=== PATIENT | female | born 1965 | race African-American/Black ===

== ENCOUNTER 2019-10-28 10:25 | Emergency (ER) | payer MEDICAID ==
[~2019-10-28] VITALS: Ht 162.6 cm; Wt 81.6 kg
[~2019-10-28 10:25] MED LIST: ALBU2.5V8 INH; AZIT250T6 PO; METH4TAB2 PO
[2019-10-28 10:50] VITALS: BP 122/71
[2019-10-28] MEDS ORDERED: IPRATRPIUM/ALBUTEROL 0.5/2.5MG 3 ML NEBU. NEB STA (10:52)
[2019-10-28] MEDS ORDERED: DEXAMETHASONE 4 MG TABLET PO STA (10:52)
--- NOTE | 2019-10-28 10:54 | PHYS DOC ---
Past Medical History Past Medical History: Asthma, GERD Additional Past Medical Histor: BACK Past Surgical History: Cholecystectomy Alcohol Use: None Drug Use: None Adult General Chief Complaint Chief Complaint: ASTHMA HPI HPI Patient is a 53 year old female who presents with cough and wheezing this been ongoing for week. She states that she's been taken her inhaler at home but has not improved the situation. She reports her pain as 0 out of 10 in severity and sharp. Denies any fevers. Review of Systems Review of Systems Constitutional: Denies fever or chills [] Eyes: Denies change in visual acuity, redness, or eye pain [] HENT: Denies nasal congestion or sore throat [] Respiratory: Reports cough and shortness of breath [] Cardiovascular: No additional information not addressed in HPI [] GI: Denies abdominal pain, nausea, vomiting, bloody stools or diarrhea [] : Denies dysuria or hematuria [] Musculoskeletal: Denies back pain or joint pain [] Integument: Denies rash or skin lesions [] Neurologic: Denies headache, focal weakness or sensory changes [] Endocrine: Denies polyuria or polydipsia [] Complete systems were reviewed and found to be within normal limits, except as documented in this note. Current Medications Current Medications Current Medications Medications (Trade) Dose Ordered Sig/Beth Start Time Stop Time Status Last Admin Dose Admin Albuterol Sulfate (Ventolin Neb Soln) 10 mg 1X STAT 10/28/19 11:42 10/28/19 11:43 DC 10/28/19 12:10 10 MG Albuterol/ Ipratropium (Duoneb) 3 ml 1X STAT 10/28/19 10:52 10/28/19 10:54 DC 10/28/19 11:08 3 ML Dexamethasone (Decadron) 10 mg 1X STAT 10/28/19 10:52 10/28/19 10:54 DC 10/28/19 10:59 10 MG Allergies Allergies Allergies Coded Allergies Type Severity Reaction Last Updated Verified morphine Allergy Severe HIVES, 07/13/19 Yes Physical Exam Physical Exam Constitutional: Well developed, well nourished, no acute distress, non-toxic appearance. [] HENT: Normocephalic, atraumatic, bilateral external ears normal, oropharynx moist, no oral exudates, nose normal. [] Eyes: PERRLA, EOMI, conjunctiva normal, no discharge. [] Neck: Normal range of motion, no tenderness, supple, no stridor. [] Cardiovascular:Heart rate regular rhythm, no murmur [] Lungs & Thorax: Bilateral breath sounds have scattered wheezing bilaterally. Skin: Warm, dry, no erythema, no rash. [] Neurologic: Alert and oriented X 3, normal motor function, normal sensory function, no focal deficits noted. [] Psychologic: Affect normal, judgement normal, mood normal. [] Current Patient Data Vital Signs Vital Signs Date Time Temp Pulse Resp B/P (MAP) Pulse Ox O2 Delivery O2 Flow Rate FiO2 10/28/19 12:10 97 Room Air 10/28/19 10:50 98.5 74 22 122/71 (88) 98.5 EKG EKG [] Radiology/Procedures Radiology/Procedures [] Course & Med Decision Making Course & Med Decision Making Pertinent Labs and Imaging studies reviewed. (See chart for details) Will order Decadron, and Duoneb. Patient was still wheezing after initial duoneb. Ordered hour long treatment. After the hour long treatment, the patient has improved. Will put on 5 day course of prednisone and prescribe inhaler and d/c home. Dragon Disclaimer Dragon Disclaimer This electronic medical record was generated, in whole or in part, using a voice recognition dictation system. Departure Departure Impression: Primary Impression: Asthma exacerbation Disposition: 01 HOME, SELF-CARE Condition: STABLE Referrals: UNKNOWN PCP NAME (PCP) Patient Instructions: Asthma Attacks, Prevention, Asthma, Adult Additional Instructions: Thank you for visiting [facility]. We appreciate you trusting us with your care. If any additional problems come up don't hesitate to return to visit us. Please follow up with your primary care provider so they can plan additional care if needed and know about the problem that you had. If symptoms worsen come back to the Emergency Department. Any concerning symptoms that start such as chest pain, shortness of air, weakness or numbness on one side of the body, running high fevers or any other concerning symptoms return to the ER. Please fill your medications at any pharmacy and follow the prescription instructions. Scripts Prednisone (PREDNISONE) 20 Mg Tablet 1 TAB PO BID, #10 TAB Prov: JAMEE NEWBERRY APRN 10/28/19 Albuterol Sulfate (PROAIR HFA INHALER) 8.5 Gm Hfa.aer.ad 2 PUFF IH PRN Q4-6HRS PRN for wheezing for 21 Days, #1 INHALER 0 Refills Prov: JAMEE NEWBERRY APRN 10/28/19 Problem Qualifiers Primary Impression: Asthma exacerbation Asthma severity: moderate Asthma persistence: unspecified Qualified Codes: J45.901 - Unspecified asthma with (acute) exacerbation JAMEE NEWBERRY APRN Oct 28, 2019 10:54
[2019-10-28] MEDS ORDERED: ALBUTEROL SULFATE 2.5 MG/3 ML NEBU. CONT NEB STA (11:42)
[2019-10-28] MEDS ORDERED: ALBU2.5V8 IH (13:30)
[2019-10-28] MEDS ORDERED: PRED20TA PO (13:30)
== END 2019-10-28 13:42 | disposition home or self-care (01) ==
LOC: ER 10:25
DX: J45.901 Unspecified asthma with (acute) exacerbation (principal); K21.9 Gastro-esophageal reflux disease without esophagitis; Z88.5 Allergy status to narcotic agent
CPT/HCPCS: 94640; 94644; 99285; J7613; J7620; J8540

== ENCOUNTER 2019-11-11 10:06 | Emergency (ER) | payer MEDICAID ==
[~2019-11-11] VITALS: Ht 165.1 cm; Wt 81.6 kg
[~2019-11-11 10:06] MED LIST changes: +ALBU2.5V8 IH; +PRED20TA PO
[2019-11-11 10:15] VITALS: BP 141/75
--- NOTE | 2019-11-11 10:27 | PHYS DOC ---
Past Medical History Past Medical History: Asthma, GERD Additional Past Medical Histor: BACK Past Surgical History: Cholecystectomy Additional Information: Nonsmoker Alcohol Use: None Drug Use: None Adult General Chief Complaint Chief Complaint: LOWER BACK PAIN OR INJURY HPI HPI Patient is a 54-year-old female with a history of chronic back pain that is presenting to the emergency department with 1 week of bilateral lower back pain. Patient states that she was sick recently and the back pain was exacerbated by her vomiting, she states that she no longer has any of her sickness symptoms but her back pain is still there. Patient is presenting because her back pain is unbearable at home and she has run out of her muscle relaxants that she previously had used for her back pain. Tried [id number] creams and ibuprofen for the pain to no relief. She has not taken any medications today. Patient denies radiation of pain, saddle anesthesia, loss of bowel or bladder function, numbness or tingling down her legs. Patient denies chest pain, shortness breath, fever, chills, nausea, vomiting, abdominal pain, constipation, or diarrhea. Patient denies any falls or acute trauma. Review of Systems Review of Systems Constitutional: Denies fever or chills Eyes: Denies redness or eye pain HENT: Denies nasal congestion or sore throat Respiratory: Denies cough or shortness of breath Cardiovascular: Denies chest pain or palpitations GI: Denies abdominal pain, nausea, or vomiting : Denies dysuria or hematuria Musculoskeletal: Denies joint pain, reports back pain Integument: Denies rash or skin lesions Neurologic: Denies headache, focal weakness or sensory changes Complete systems were reviewed and found to be within normal limits, except as documented in this note. Current Medications Current Medications Current Medications Medications (Trade) Dose Ordered Sig/Beth Start Time Stop Time Status Last Admin Dose Admin Dexamethasone (Decadron) 10 mg 1X ONCE 11/11/19 11:00 11/11/19 10:52 DC 11/11/19 10:41 10 MG Ketorolac Tromethamine (Toradol 30mg Vial) 30 mg 1X ONCE 11/11/19 11:00 11/11/19 10:52 DC 11/11/19 10:41 30 MG Lidocaine (Lidoderm) 1 patch 1X ONCE 11/11/19 11:00 11/11/19 10:52 DC 11/11/19 10:41 1 PATCH Allergies Allergies Allergies Coded Allergies Type Severity Reaction Last Updated Verified morphine Allergy Severe HIVES, 07/13/19 Yes Physical Exam Physical Exam Constitutional: Well developed, well nourished, no acute distress, non-toxic appearance HENT: Normocephalic, atraumatic, oropharynx moist Eyes: Conjunctiva normal, no discharge Neck: Normal range of motion, no tenderness, supple Cardiovascular: Heart rate normal, regular rhythm Lungs & Thorax: Bilateral breath sounds clear to auscultation, no wheezing Abdomen: Soft, no tenderness Skin: Warm, dry, no erythema, no rash Back: No midline tenderness, no CVA tenderness, bilateral lumbar paraspinal tenderness Extremities: No tenderness, ROM intact, no edema Neurologic: Alert and oriented X 3, normal motor function, normal sensory function, no focal deficits noted Psychologic: Affect normal, judgement normal, mood normal Current Patient Data Vital Signs Vital Signs Date Time Temp Pulse Resp B/P (MAP) Pulse Ox O2 Delivery O2 Flow Rate FiO2 11/11/19 10:15 98.6 65 16 141/75 (97) 99 Room Air 98.6 EKG EKG [] Radiology/Procedures Radiology/Procedures [] Course & Med Decision Making Course & Med Decision Making Patient is a 54-year-old female with a history of chronic low back pain is presenting to the emergency department with a one-week history of bilateral low back pain. Patient was seen and examined at bedside. Physical exam was significant for bilateral lumbar paraspinal tenderness, no midline tenderness, patient denies any falls or acute trauma. Patient was offered symptomatic treatment. Patient will be discharged home with pain control and muscle spasm control. Patient stable for discharge with outpatient follow-up with PCP. Discussed findings and plan with patient, who acknowledges understanding and agreement. Dragon Disclaimer Dragon Disclaimer This electronic medical record was generated, in whole or in part, using a voice recognition dictation system. Departure Departure Impression: Primary Impression: Acute back pain Disposition: 01 HOME, SELF-CARE Condition: STABLE Referrals: UNKNOWN PCP NAME (PCP) Patient Instructions: Back Pain, Adult, [id number] Scripts Lidocaine (Lidocaine PATCH ) 1 Each Adh..patch 1 EACH TP DAILY PRN for PAIN, #5 PATCH 0 Refills REMOVE AFTER 12 HOURS, leave off for 12 hours before replacement with new patch Prov: JAMEE MACK DO 11/11/19 Orphenadrine Citrate (ORPHENADRINE CITRATE) 100 Mg Tablet.er 100 MG PO BID PRN for MUSCLE SPASMS, #14 TAB 0 Refills Prov: JAMEE MACK DO 11/11/19 Problem Qualifiers Primary Impression: Acute back pain Back pain location: low back pain Back pain laterality: bilateral Sciatica presence: without sciatica Qualified Codes: M54.5 - Low back pain JAMEE MACK DO Nov 11, 2019 10:26
[2019-11-11] MEDS ORDERED: ORPH100T PO (10:33)
[2019-11-11] MEDS ORDERED: LIDO700A21 TP (10:33)
[2019-11-11] MEDS ORDERED: LIDOCAINE (700MG/PATCH) PATCH. TD ONE (11:00)
[2019-11-11] MEDS ORDERED: DEXAMETHASONE 4 MG TABLET PO ONE (11:00)
[2019-11-11] MEDS ORDERED: KETOROLAC 30 MG/ML VIAL. IM ONE (11:00)
== END 2019-11-11 10:50 | disposition home or self-care (01) ==
LOC: ER 10:06
DX: G89.29 Other chronic pain (principal); M54.5 Low back pain; K21.9 Gastro-esophageal reflux disease without esophagitis; J45.909 Unspecified asthma, uncomplicated; Z88.5 Allergy status to narcotic agent
CPT/HCPCS: 96372; 99283; J1885; J8540